=== PATIENT | male | born 1970 | race Caucasian/White ===

== ENCOUNTER 2020-11-23 10:41 | Emergency (ER) | payer OTHER ==
[2020-11-23] MEDS ORDERED: DICLOFENAC SODI75 MG PO (12:20)
== END 2020-11-23 13:03 | disposition home or self-care (01) ==
LOC: FER 10:41
DX: R07.89 Other chest pain (principal); F17.200 Nicotine dependence, unspecified, uncomplicated; Z88.1 Allergy status to other antibiotic agents; Z88.6 Allergy status to analgesic agent
CPT/HCPCS: 71101